=== PATIENT | male | born 1965 | race Caucasian/White ===

== ENCOUNTER → 2019-01-05 | Outpatient (CLI) | payer OTHER | LOC: GMA MATASK 16:49 | PROVIDERS: ATTEND Family Medicine | DX: Z13.220 Encounter for screening for lipoid disorders (principal) ==

== ENCOUNTER 2019-06-20 09:53 | Emergency (ER) | payer OTHER ==
[2019-06-20 10:14] VITALS: TEMP 97.5
--- NOTE | 2019-06-20 10:56 | ED.PDOC ---
History of Present Illness - General Chief Complaint: Respiratory Problem Stated Complaint: Chest congestion, SOB, cough x 14 days Time Seen by Provider: 06/20/19 10:51 Source: patient, RN notes reviewed, Vital Signs reviewed Exam Limitations: no limitations - History of Present Illness Comments: Patient is a 54-year-old white male who is otherwise healthy who complains of cough times the last 14 days. Patient has taken 10 days worth of Augmentin without improvement of the symptoms. Patient's cough initially was productive for a thick yellowish sputum. As of this morning, the cough is no longer productive. Patient denies any fever or chills. He has some mild shortness of breath. The cough keeps him up at night. Patient denies any headache, blurry vision, dizziness, chest pain, nausea, vomiting, diarrhea. There are no other sick contacts. This cough is moderate in intensity and nothing seems to make it better or worse. Patient states this is similar to his walking pneumonia these had in the past. Timing/Duration: constant, getting worse, other - Cough x14 days. Cough Quality/Degree: moderate, productive cough Possible Cause: occasional episodes Improving Factors: nothing Worsening Factors: nothing Associated Symptoms: cough, nasal congestion, nasal drainage, shortness of breath Respiratory Risk Factors: no cause identified Allergies/Adverse Reactions: Allergies NO KNOWN ALLERGY Allergy (Verified 06/20/19 10:06) Home Medications: Ambulatory Orders Cetirizine HCl [ZyrTEC] 10 mg PO DAILY 06/20/19 Guaifenesin-Codeine [Guaifenesin AC] 10 ml PO Q6HR PRN #180 ml 06/20/19 predniSONE 60 mg PO DAILY #15 tab 06/20/19 Review of Systems - Review of Systems Constitutional: States: see HPI, fever, malaise. Denies: chills, weakness EENTM: States: see HPI, nose congestion. Denies: eye pain, blurred vision, double vision, throat pain, throat swelling, mouth pain, mouth swelling Respiratory: States: see HPI, cough, short of breath. Denies: stridor, wheezing Cardiology: States: no symptoms reported. Denies: chest pain, palpitations, syncope Gastrointestinal/Abdominal: States: see HPI, nausea. Denies: abdominal pain, diarrhea, vomiting Genitourinary: States: no symptoms reported. Denies: discharge, dysuria, frequency Musculoskeletal: States: no symptoms reported. Denies: back pain, joint pain, muscle pain Skin: States: no symptoms reported. Denies: change in color, rash Neurological: States: no symptoms reported. Denies: headache, numbness, tingling, weakness Endocrine: States: no symptoms reported Hematologic/Lymphatic: States: no symptoms reported All other Systems: Reviewed and Negative Past Medical History (General) - Patient Medical History Hx Stroke: No Hx of COPD: No Hx Cardiac Disorders: No Hx Hypertension: No Hx Diabetes: No Hx Cancer: No Surgical History: tonsillectomy, other - Vaccination History Hx Tetanus, Diphtheria Vaccination: Yes Hx Influenza Vaccination: No Hx Pneumococcal Vaccination: No - Social History Hx Tobacco Use: No Hx Alcohol Use: Yes Hx Substance Use: No Hx Substance Use Treatment: No Hx Depression: No - Female History Patient is a Female of Child Bearing Age (10 -59 yrs old): No Patient : No Family Medical History - Family History Mother Family History: No Known Physical Exam - Physical Exam General Appearance: Alert, Comfortable, Well Developed, Well Groomed, Well Hydrated, Well Nourished Eye Exam: bilateral normal ENT Exam: normal ENT inspection, hearing grossly normal, pharynx normal Neck: non-tender, full range of motion, supple, normal inspection, trachea midline Respiratory: chest non-tender, lungs clear, normal breath sounds, no respiratory distress, no accessory muscle use, other - Intermittent nonproductive cough. 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 06/20/19 11:06 Patient has good oxygen saturation. X-ray does not show pneumonia. I suspect this is a viral URI. Plan on discharge home with a prescription for steroids and cough medicine. I have discussed this plan of care with the patient he voices understanding and agreement. Patient to follow-up with PCP within the next 5 days for a recheck if he is not getting better. I reviewed the [place] [employer] aware website and after review of the website as well as my clinical impressions, believe it is appropriate to prescribe him guaifenesin AC. Mac Quigley M.D. #[id number] 06/20/19 11:17 - Results/Orders Results/Orders: XR Chest 2 views Indication: Chest congestion. Comparisons: None. Findings: The heart size is within normal limits. 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 No pneumothorax is seen. No effusions are noted presumed to that. Impression: Left lung linear atelectasis of the left lung. Electronically signed by: Kvng Kasper MD 06/20/2019 10:52 AM Departure - Departure Clinical Impression: Viral upper respiratory tract infection with cough Time of Disposition: 11:11 Disposition: Discharge to Home or Self Care Condition: Good Departure Forms: ED Discharge - Pt. Copy, Patient Portal Self Enrollment Instructions: Viral Upper Respiratory Infection, Adult (DC) Diet: resume usual diet Activity: increase activity as tolerated Referrals: Pawel Beavers MD [Primary Care Provider] - 1-5 Days Prescriptions: Guaifenesin-Codeine [Guaifenesin AC] 10 ml PO Q6HR PRN #180 ml PRN Reason: Cough predniSONE 60 mg PO DAILY #15 tab Home Medications: Ambulatory Orders Cetirizine HCl [ZyrTEC] 10 mg PO DAILY 06/20/19 Guaifenesin-Codeine [Guaifenesin AC] 10 ml PO Q6HR PRN #180 ml 06/20/19 predniSONE 60 mg PO DAILY #15 tab 06/20/19
[2019-06-20 11:12] VITALS: BP 138/86; O2SAT 94
== END 2019-06-20 11:20 | disposition home or self-care (01) ==
LOC: ER 09:53
DX: J06.9 Acute upper respiratory infection, unspecified (principal)